=== PATIENT | female | born 1970 | race Caucasian/White ===

== ENCOUNTER 2016-12-07 06:46 | Day surgery (SDC) | payer MEDICAID ==
[~2016-12-07 06:46] MED LIST: ADVIL PM CAPLE1 EACH PO; CYCLOBENZAPRINE5 M1 PO; MOBIC15 M2 PO; OXYCONTIN10 M2 PO; OXYCONTIN40 M2 PO
== END 2016-12-07 13:10 ==
LOC: SHSC 06:46 → PACU 11:27
PROC: 0HBU0ZZ Excision of Left Breast, Open Approach (ICD-10-PCS; principal; 2016-12-07)
DX: D24.2 Benign neoplasm of left breast (principal); N60.22 Fibroadenosis of left breast; N60.12 Diffuse cystic mastopathy of left breast; M19.90 Unspecified osteoarthritis, unspecified site; F17.210 Nicotine dependence, cigarettes, uncomplicated; Z88.5 Allergy status to narcotic agent; Z88.8 Allergy status to other drugs, medicaments and biological substances; Z90.49 Acquired absence of other specified parts of digestive tract; Z98.51 Tubal ligation status; Z98.890 Other specified postprocedural states
CPT/HCPCS: J0690; J2250; J2765